=== PATIENT | male | born 1965 | race Caucasian/White ===

== ENCOUNTER 2018-09-02 22:31 | Emergency (ER) | payer OTHER ==
[2018-09-02 22:39] VITALS: BP 143/92; PULSE 102; RESP 18; TEMP 97.9
--- NOTE | 2018-09-02 22:47 | ED ---
General Adult HPI - General Chief complaint: Recheck/Abnormal Lab/Rx Stated complaint: cant sleep, insomnia Time Seen by Provider: 09/02/18 22:43 Source: patient Mode of arrival: ambulatory Limitations: no limitations - History of Present Illness Initial comments: Ramakrishna is a 52-year-old woman presents the emergency department today complaining he is having difficulty sleeping. Patient reports that over the past 2 weeks has noticed he has trouble falling asleep. He feels very restless at night. He reports he was in bed and is unable sleep. He is currently not working so he states he spends most the day just sitting at home watching television. Patient reports that he believes this trouble sleeping may be related to his antihypertension medication amlodipine though he does admit he is under a lot of emotional stress and is somewhat upset as yesterday was the one year anniversary of his mother's . Patient believes that this emotional distress and the stress associated with not working since May may also be contributing to his inability to sleep. 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 Patient states that he hasn't contacted his memory care physician multiple times over the past 2 weeks and has a follow-up visit at 3:30 PM on Wednesday to discuss these issues. Patient states he just wants help sleeping. Patient states that he had been taking melatonin however his read on the Internet that may not be safe on the medications he is on so she advised him to stop taking that. - Related Data Home Medications Medication Instructions Recorded Confirmed Losartan/Hydrochlorothiazide 1 each PO DAILY 09/02/18 09/02/18 [Losartan-Hctz 100-12.5 mg Tab] Kwadwo Restful Sleep Gummies 1 tab PO HS PRN 09/02/18 09/02/18 amLODIPine BESYLATE 5 mg PO DAILY 09/02/18 09/02/18 Previous Rx's Medication Instructions Recorded LORazepam [Ativan] 1 - 2 mg PO HS 3 Days #6 tab 09/02/18 Allergies Allergy/AdvReac Type Severity Reaction Status Date / Time aspirin AdvReac Nausea & Verified 09/02/18 22:47 Vomiting Review of Systems ROS Statement: Those systems with pertinent positive or pertinent negative responses have been documented in the HPI. ROS Other: All systems not noted in ROS Statement are negative. Past Medical History Past Medical History: Hypertension History of Any Multi-Drug Resistant Organisms: None Reported Past Surgical History: Tonsillectomy Past Psychological History: No Psychological Hx Reported Smoking Status: Current every day smoker Past Alcohol Use History: None Reported Past Drug Use History: None Reported General Exam - General Exam Comments Initial Comments: Physical Exam GENERAL: Patient is well-developed and well-nourished. Patient is nontoxic and well-hydrated and is in no distress. HENT: Normocephalic, Atraumatic. EYES: PERRL, EOMI PULMONARY: Unlabored respirations. CARDIOVASCULAR: There is a regular rate and rhythm without any murmurs gallops or rubs. ABDOMEN: Soft and nontender with normal bowel sounds. SKIN: Skin is clear with no lesions or rashes and otherwise unremarkable. : Deferred NEUROLOGIC: Patient is alert and oriented x3. Moving all extremities spontaneously MUSCULOSKELETAL: Normal extremities with adequate strength and full range of motion. No lower extremity swelling or edema. No calf tenderness. PSYCHIATRIC: Situational anxiety Limitations: no limitations Limitations: no limitations Course Vital Signs 09/02/18 22:34 Temperature 97.9 F Pulse Rate 102 H Respiratory 18 Rate Blood Pressure 143/92 O2 Sat by Pulse 99 Oximetry Medical Decision Making - Medical Decision Making The patient was seen and evaluated history was obtained from the patient I spoke with the patient for approximately 20 minutes regarding the multiple emotional stressors he is experiencing currently most prominently the anniversary of his mother's the stress over not being employed. Patient reports 2 weeks of worsening restlessness at night and inability to fall asleep her seriously. In addition the patient does admit that he has a sedentary lifestyle with no exercise and is somewhat depressed. I discussed with the patient's lifestyle modifications that will help him sleep better including regular exercise regular diet. I did advise the needs to follow up with his primary care Wednesday as needed to discuss his multiple concerns however I will prescribe him Ativan for the weekend to help him sleep. I do suspect that the anniversary of his mother's is interpreting significantly as is the social isolation patient is experiencing. At this time the patient is comfortable with plan for discharge home and outpatient follow-up. Disposition Clinical Impression: Insomnia Disposition: HOME SELF-CARE Condition: Stable Instructions (If sedation given, give patient instructions): Insomnia (ED) Prescriptions: LORazepam [Ativan] 1 - 2 mg PO HS 3 Days #6 tab Is patient prescribed a controlled substance at d/c from ED?: Yes When asked, does pt state using other controlled substances?: No If prescribed controlled substance>3 days was MAPS reviewed?: Prescribed <3 Days Referrals: Nonstaff,Physician [Primary Care Provider] - 1-2 days
[2018-09-02] MEDS ORDERED: LORazepam 1 MG TAB PO STA (23:17)
== END 2018-09-02 23:26 | disposition home or self-care (01) ==
LOC: EC 22:31
DX: G47.00 Insomnia, unspecified (principal); I10 Essential (primary) hypertension; F17.200 Nicotine dependence, unspecified, uncomplicated; Z79.899 Other long term (current) drug therapy; Z88.6 Allergy status to analgesic agent
CPT/HCPCS: 99283